=== PATIENT | male | born 1960 | race African-American/Black ===

== ENCOUNTER 2017-07-21 12:23 | Emergency (ER) | payer MEDICARE, OTHER ==
[~2017-07-21] VITALS: Ht 172.7 cm; Wt 83.5 kg
--- NOTE | 2017-07-21 12:39 | Emergency Room Report ---
History of Present Illness General Chief Complaint: Lower Back Pain or Injury Source: Patient Present Illness HPI The patient is a 57-year-old male presenting for lower back and hip pain after falling 2 weeks prior. He states that he was walking down steps, tripped, and fell onto his back. He did not seek any medical attention at that time. Pain has continued and is now 8/10 dull ache. Worse with movement. He denies any numbness or tingling. He denies urinary incontinence. He denies any other symptoms including N, V, F, chills, SOB, CP, weakness Allergies: Coded Allergies: No Known Allergies (Unverified , 07/21/17) Patient History Past Medical History: see triage record Pertinent Family History: none Reviewed Nursing Documentation: PMH: Agreed, PSxH: Agreed Nursing Documentation-PMH Past Medical History: No History, Except For Hx Cardiac Problems: No Hx Hypertension: Yes Hx Pacemaker: No Hx Asthma: No Hx COPD: No Hx Diabetes: No Hx Cancer: No Hx Gastrointestinal Problems: No Hx Dialysis: No Hx Neurological Problems: No Hx Cerebrovascular Accident: No Hx Seizures: No Review of Systems All Other Systems: negative except mentioned in HPI Physical Exam Vital Signs Date Time Temp Pulse Resp B/P (MAP) Pulse Ox O2 Delivery O2 Flow Rate FiO2 07/21/17 12:25 97.2 62 14 146/74 97 Room Air Sp02 EP Interpretation: reviewed, normal General Appearance: no apparent distress, alert, GCS 15, non-toxic Head: normocephalic, atraumatic Eyes: bilateral eye normal inspection, bilateral eye PERRL ENT: hearing grossly normal, normal pharynx, no angioedema, normal voice Musculoskeletal: normal inspection, other - antalgic gait, tender - TTP over midline L spine and R lateral hip Neurologic: alert, oriented x3, responsive, motor strength/tone normal, sensory intact, speech normal Psychiatric: judgement/insight normal, memory normal, mood/affect normal, no suicidal/homicidal ideation Skin: normal color, no rash, warm/dry, well hydrated Medical Decision Making PA Attestation Dr. Abbott is my supervising physician. Patient management was discussed with my supervising physician Diagnostic Impression: Primary Impression: Osteoarthritis Qualified Codes: M19.90 - Unspecified osteoarthritis, unspecified site Additional Impression: Muscle strain ER Course The patient is a 57-year-old male presenting for lower back and hip pain Ddx considered include but not limited to sprain/strain, fracture, arthritis, contusion PE: NAD. There is tenderness to palpation over bilateral lumbar paraspinal muscles There is tenderness to palpation over the right lateral hip Patient walks with antalgic gait favoring left leg CT scans showed no acute findings. No fracture. Right hip reveals osteoarthritis The patient is discharged home with pain medication and needs to follow up with his primary doctors. ER precautions are given CURES report shows patient last had oxycodone 30 day prescription 05/23/2017 CT/MRI/US Diagnostic Results CT/MRI/US Diagnostic Results #1: Imaging Test Ordered: CT L spine Impression No acute findings CT/MRI/US Diagnostic Results #2: Imaging Test Ordered: CT pelvis Impression No acute injury Severe osteoarthritis right hip. Atherosclerotic disease Last Vital Signs Date Time Temp Pulse Resp B/P (MAP) Pulse Ox O2 Delivery O2 Flow Rate FiO2 07/21/17 12:25 97.2 62 14 146/74 97 Room Air Status: improved Disposition: HOME, SELF-CARE Condition: Improved Scripts Methocarbamol* (ROBAXIN-750*) 750 Mg Tablet 750 MG PO TID, #21 TAB 0 Refills Prov: TERZIAN,LIAN P.A. 07/21/17 Ibuprofen* (MOTRIN*) 600 Mg Tablet 600 MG ORAL Q8H Y for For Pain, #30 TAB 0 Refills Prov: TERZIAN,LIAN P.A. 07/21/17 RAHULZILIAN ROSARIO P.A. Jul 21, 2017 12:39
[2017-07-21] MEDS ORDERED: Methocarbamol 750mg tab ORAL ONE (12:45)
--- NOTE | 2017-07-21 13:46 | Diagnostic Imaging Report ---
Indication: Back pain Technique: Continuous helical transaxial imaging of the lumbar spine was obtained from the lung bases to the pubic symphysis. No IV contrast was administered. Coronal 2-D reformats were also obtained. Study obtained in a Siemens sensation [address] Total Dose length Product (DLP): [address] Dose Index Volume (CTDIvol): 0.25, 15.22 mGy Comparison: None Findings: There is no evidence of an acute fracture or malalignment. Height and configuration of the vertebral bodies and intervertebral discs are within normal limits. The facets are mild hypertrophic at L4-5. There is no soft tissue swelling. Calcification of the aorta iliac arteries noted incidentally. Impression: No acute injury The CT scanner at [facility] is accredited by the [employer] and the scans are performed using dose optimization techniques as appropriate to a performed exam including Automatic Exposure control.
--- NOTE | 2017-07-21 13:49 | Diagnostic Imaging Report ---
Indication: Pelvic pain Technique: Continuous helical transaxial imaging of the pelvis was obtained from the iliac crest to the pubic symphysis. Coronal 2-D reformats were also obtained. Study obtained in a Siemens sensation [address] Intravenous non-ionic contrast was administered. Total Dose length Product (DLP): [address] Dose Index Volume (CTDIvol): 0.25, 12.84 mGy Comparison: None Findings: There is severe DJD of the right hip characterized by loss of joint space extensive subchondral sclerosis and cyst formation with osteophytes. Mild left arthritis the left hip demonstrated. There is no acute fracture. Aortoiliac artery calcifications are noted. Normal appendix incidentally demonstrated. Impression: No acute injury Severe osteoarthritis right hip. Atherosclerotic disease The CT scanner at [facility] is accredited by the [employer] and the scans are performed using dose optimization techniques as appropriate to a performed exam including Automatic Exposure control.
[2017-07-21] MEDS ORDERED: IBUPROFEN600 MG ORAL (14:09)
[2017-07-21] MEDS ORDERED: ROBAXIN-750750 MG PO (14:09)
[2017-07-21 14:18] VITALS: BP 136/67
[2017-07-21 14:20] VITALS: BP 136/67
== END 2017-07-21 14:43 | disposition home or self-care (01) ==
LOC: EMR 12:26
DX: S39.012A Strain of muscle, fascia and tendon of lower back, initial encounter (principal); W10.9XXA Fall (on) (from) unspecified stairs and steps, initial encounter; Y92.89 Other specified places as the place of occurrence of the external cause; M16.11 Unilateral primary osteoarthritis, right hip; I10 Essential (primary) hypertension
CPT/HCPCS: 72131; 72192; 99284